=== PATIENT | female | born 1995 | race Two or more races ===

== ENCOUNTER 2019-04-19 02:00 | Emergency (ER) | payer BC ==
[~2019-04-19] VITALS: Ht 162.6 cm; Wt 63.5 kg
[2019-04-19 02:25] VITALS: BP 126/77
== END 2019-04-19 06:31 | disposition home or self-care (01) ==
LOC: ER 02:03
DX: S60.411A Abrasion of left index finger, initial encounter (principal); S60.312A Abrasion of left thumb, initial encounter; V43.52XA Car driver injured in collision with other type car in traffic accident, initial encounter; Y93.89 Activity, other specified; Y99.8 Other external cause status; Y92.410 Unspecified street and highway as the place of occurrence of the external cause
CPT/HCPCS: 71046; 72220; 73130; 73560